=== PATIENT | male | born 1935 | race Caucasian/White ===

== ENCOUNTER 2017-11-16 01:07 | Emergency (ER) | payer MEDICARE | END 2017-11-16 02:43 | disposition home or self-care (01) | LOC: D.ER 01:07 | DX: S00.93XA Contusion of unspecified part of head, initial encounter (principal); W06.XXXA Fall from bed, initial encounter; Y93.89 Activity, other specified; Y92.019 Unspecified place in single-family (private) house as the place of occurrence of the external cause; Z86.73 Personal history of transient ischemic attack (TIA), and cerebral infarction without residual deficits; I10 Essential (primary) hypertension ==

== ENCOUNTER → 2017-11-20 14:11 | Outpatient (CLI) | payer MEDICARE ==
[2017-11-20 14:19] LABS: BASOPHILS 0.7 % (0-2); EOSINOPHILS 2.7 % (0-7); HEMATOCRIT 46.5 % (42.0-54.0); HEMOGLOBIN 16.4 g/dL (13.5-17.5); IMMATURE GRANULOCYTES 0.4 % (0-5); LYMPHOCYTES 17.1 % (15-50); MCH 32.7 pg (26.0-34.0); MCHC 35.3 g/dL (31.0-37.0); MCV 92.6 fL (80.0-100.0); MEAN PLATELET VOLUME 11.4 fL (7.4-10.4); MONOCYTES 8.7 % (2-11); NEUTROPHILS 70.4 % (40-80); PLATELET COUNT 236 10x3/uL (130-400); RBC 5.02 10x6/uL (4.20-6.10); RDW 12.7 % (11.5-14.5); WBC 8.3 10x3/uL (4.8-10.8)
[2017-11-20 14:55] LABS: ALBUMIN 3.6 g/dL (3.4-5.0); ALKALINE PHOSPHATASE 118 U/L (46-116); ALT (SGPT) 28 U/L (10-68); BILIRUBIN - TOTAL 0.72 mg/dL (0.2-1.3); CALC OSMOLALITY 266 mosm/kg (275-300); CALCIUM 9.1 mg/dL (8.5-10.1); CHLORIDE - SERUM 96 mmol/L (98-107); CHOL - HDL RATIO 2.9 ratio (2.3-4.9); CHOLESTEROL, TOTAL 176 mg/dL (0-200); CREATININE - SERUM 0.8 mg/dL (0.6-1.3); GLUCOSE 80 mg/dL (74-106); HDL CHOLESTEROL 60 mg/dL (32-96); LDL CHOLESTEROL 95 mg/dL (0-100); LDL-HDL RATIO 1.6 ratio (1.5-3.5); POTASSIUM - SERUM 3.6 mmol/L (3.5-5.1); PROTEIN - SERUM 7.1 g/dL (6.4-8.2); SODIUM 134 mmol/L (136-145); TRIGLYCERIDE 109 mg/dL (30-200); UREA NITROGEN 13 mg/dL (7-18); eGFR NON AFRICAN AMERICAN > 90 mL/min (90-120)
== END | disposition home or self-care (01) ==
LOC: D.LABREF 14:11
PROVIDERS: Family Medicine
DX: I63.9 Cerebral infarction, unspecified (principal); I10 Essential (primary) hypertension

== ENCOUNTER 2019-01-16 16:00 | Emergency (ER) | payer MEDICARE ==
[~2019-01-16] VITALS: Ht 177.8 cm; Wt 64.5 kg
[2019-01-16 16:02] VITALS: Ht 177.8 cm; Wt 64.5 kg
[2019-01-16] MEDS ORDERED: PLAVIX75 MG PO (16:06)
[2019-01-16] MEDS ORDERED: ZOLOFT100 MG PO (16:06)
[2019-01-16] MEDS ORDERED: BAYER CHEWABLE81 MG PO (16:07)
[2019-01-16] MEDS ORDERED: LIORESAL 10 MG10 MG PO (16:07)
[2019-01-16 16:32] LABS: BASOPHILS 0.4 % (0-2); EOSINOPHILS 0.7 % (0-7); HEMATOCRIT 47.9 % (42.0-54.0); HEMOGLOBIN 17.2 g/dL (13.5-17.5); IMMATURE GRANULOCYTES 0.2 % (0-5); LYMPHOCYTES 7.5 % (15-50); MCH 32.1 pg (26.0-34.0); MCHC 35.9 g/dL (31.0-37.0); MCV 89.5 fL (80.0-100.0); MEAN PLATELET VOLUME 10.8 fL (7.4-10.4); MONOCYTES 7.7 % (2-11); NEUTROPHILS 83.5 % (40-80); RBC 5.35 10x6/uL (4.20-6.10); RDW 13.4 % (11.5-14.5); WBC 8.1 10x3/uL (4.8-10.8)
[2019-01-16 16:34] LABS: PLATELET COUNT 166 10x3/uL (130-400)
[2019-01-16 16:44] LABS: INR 1.08 (0.85-1.17); PROTIME 13.5 SECONDS (11.6-15.0)
[2019-01-16 16:48] LABS: ALBUMIN 3.2 g/dL (3.4-5.0); ALKALINE PHOSPHATASE 122 U/L (46-116); ALT (SGPT) 16 U/L (10-68); BILIRUBIN - TOTAL 0.96 mg/dL (0.2-1.3); CALC OSMOLALITY 266 mosm/kg (275-300); CALCIUM 8.3 mg/dL (8.5-10.1); CARBON DIOXIDE 22.7 mmol/L (21.0-32.0); CHLORIDE - SERUM 100 mmol/L (98-107); CREATININE - SERUM 0.9 mg/dL (0.6-1.3); GLUCOSE 104 mg/dL (74-106); PROTEIN - SERUM 6.7 g/dL (6.4-8.2); SODIUM 132 mmol/L (136-145); UREA NITROGEN 19 mg/dL (7-18); eGFR NON AFRICAN AMERICAN 86 mL/min (90-120)
[2019-01-16 16:59] LABS: CKMB 0.6 U/L (0.0-3.6); CREATINE KINASE 38 UL (21-232); MAGNESIUM - SERUM 1.9 mg/dL (1.8-2.4)
[2019-01-16 17:00] LABS: TROPONIN-I < 0.017 ng/mL (0.000-0.060)
[2019-01-16] MEDS ORDERED: OMNICEF300 MG PO (17:08)
[2019-01-16 17:48] VITALS: BP 133/83
== END 2019-01-16 17:45 | disposition home or self-care (01) ==
LOC: D.ER 16:00
PROVIDERS: Family Medicine
DX: J18.9 Pneumonia, unspecified organism (principal); Z86.73 Personal history of transient ischemic attack (TIA), and cerebral infarction without residual deficits

== ENCOUNTER 2019-02-19 03:56 | Inpatient (IN) | payer MEDICARE ==
[~2019-02-19] VITALS: Ht 177.8 cm; Wt 6.1 kg
[2019-02-19] VITALS (9 sets, daily range): BP systolic 117–171; BP diastolic 83–100; Ht 177.8 cm; Wt 6.1 kg
[~2019-02-19 03:56] MED LIST: BAYER CHEWABLE81 MG PO; LIORESAL 10 MG10 MG PO; OMNICEF300 MG PO; PLAVIX75 MG PO; ZOLOFT100 MG PO
[2019-02-19 05:29] LABS: BASOPHILS 0.1 % (0-2); EOSINOPHILS 0.2 % (0-7); HEMOGLOBIN 15.1 g/dL (13.5-17.5); IMMATURE GRANULOCYTES 0.6 % (0-5); LYMPHOCYTES 5.7 % (15-50); MCH 30.9 pg (26.0-34.0); MCHC 34.3 g/dL (31.0-37.0); NEUTROPHILS 86.4 % (40-80); RBC 4.89 10x6/uL (4.20-6.10); RDW 13.1 % (11.5-14.5); WBC 15.1 10x3/uL (4.8-10.8)
[2019-02-19 05:50] LABS: PLATELET COUNT 279 10x3/uL (130-400)
[2019-02-19 05:53] LABS: ALBUMIN 2.4 g/dL (3.4-5.0); ALKALINE PHOSPHATASE 171 U/L (46-116); ALT (SGPT) 58 U/L (10-68); APTT 29.7 SECONDS (22.8-39.4); BILIRUBIN - TOTAL 0.77 mg/dL (0.2-1.3); CALC OSMOLALITY 292 mosm/kg (275-300); CALCIUM 8.6 mg/dL (8.5-10.1); CARBON DIOXIDE 25.6 mmol/L (21.0-32.0); CHLORIDE - SERUM 105 mmol/L (98-107); CREATININE - SERUM 0.8 mg/dL (0.6-1.3); INR 1.27 (0.85-1.17); POTASSIUM - SERUM 4.1 mmol/L (3.5-5.1); PROTEIN - SERUM 6.4 g/dL (6.4-8.2); PROTIME 15.3 SECONDS (11.6-15.0); SODIUM 141 mmol/L (136-145); UREA NITROGEN 31 mg/dL (7-18); eGFR NON AFRICAN AMERICAN > 90 mL/min (90-120)
[2019-02-19 05:56] LABS: GLUCOSE 187 mg/dL (74-106)
[2019-02-19 06:24] LABS: APPEARANCE CLEAR (CLEAR); BACTERIA FEW /hpf (NONE SEEN); BILIRUBIN NEGATIVE (NEGATIVE); COLOR DK YELLOW (YELLOW); EPITHELIAL CELLS OCC /hpf (0-5); GLUCOSE NEGATIVE (NEGATIVE); KETONE NEGATIVE (NEGATIVE); MUCUS <1+ /lpf (NONE SEEN); NITRITE NEGATIVE (NEGATIVE); PROTEIN TRACE mg/dL (NEGATIVE); RED CELLS - URINE RARE /hpf (0-5); UROBILINOGEN NORMAL (NORMAL); WHITE CELLS - URINE OCC /hpf (0-5)
--- NOTE | 2019-02-24 12:42 | MORECARE ---
CASE MANAGEMENT DISCHARGE SUMMARY PATIENT: SAMINA SHRESTHA UNIT: [id number] ADM DATE: 02/19/19 AGE: 83 : 37 SEX: M ROOM/BED: D.2230 AUTHOR: TANNER ROSS PHYSICIAN: REFERRING PHYSICIAN: AL QUINTERO MD DATE OF SERVICE: 02/24/19 Discharge Plan Patient Name: [facility]INA SHRESTHA [facility] [facility] 1935 Planned Disposition: Anticipated Discharge Date: Discharge Date: 02/19/2019 Expected LOS: 0 Initial Reviewer: [id number] Initial Review Date: 02/24/2019 Generated: 02/24/19 1:42 pm Patient Name: SAMINA SHRESTHA Page [phone] at 1242 All edits/amendments must be made on the electronic document DICTATION DATE: 02/24/19 1242 WEALTH MANAGEMENT ADVISOR: RONNELL 02/24/19 1242 RPT#: [id number] DC DATE:02/19/19 STATUS: DIS IN [facility] [address] [place] [address] END OF REPORT
== END 2019-02-19 23:40 | DRG 194 ==
LOC: D.ER 03:56 → D.MS 06:08
PROVIDERS: Emergency Medicine; ADMIT Legal Medicine; ATTEND Legal Medicine
DX: J18.1 Lobar pneumonia, unspecified organism (principal); G81.91 Hemiplegia, unspecified affecting right dominant side; R47.01 Aphasia